=== PATIENT | male | born 1940 | race Caucasian/White ===

== ENCOUNTER → 2017-10-02 | Outpatient (CLI) | payer MEDICARE ==
[~2017-10-02] MED LIST: OMNIPAQUE 350 MG/ML, 100ML BOTTLE ONE
== END | disposition home or self-care (01) ==
LOC: CFH 09:06
PROVIDERS: ATTEND Internal Medicine Cardiovascular Disease
DX: I71.2 Thoracic aortic aneurysm, without rupture (principal); I08.3 Combined rheumatic disorders of mitral, aortic and tricuspid valves; I10 Essential (primary) hypertension; I25.10 Atherosclerotic heart disease of native coronary artery without angina pectoris
CPT/HCPCS: 71275; 82565; 93306; Q9967

== ENCOUNTER → 2018-06-27 | Outpatient (CLI) | payer MEDICARE | END | disposition home or self-care (01) | LOC: CFH 13:36 | PROVIDERS: ATTEND Physician Assistant | DX: I77.810 Thoracic aortic ectasia (principal); I35.1 Nonrheumatic aortic (valve) insufficiency; I25.10 Atherosclerotic heart disease of native coronary artery without angina pectoris; I71.2 Thoracic aortic aneurysm, without rupture; I11.9 Hypertensive heart disease without heart failure; I35.8 Other nonrheumatic aortic valve disorders; R73.03 Prediabetes; Z87.891 Personal history of nicotine dependence | CPT/HCPCS: 71275; 82565; 93306; Q9967 ==

== ENCOUNTER → 2019-01-30 | Outpatient (CLI) | payer MEDICARE | END | disposition home or self-care (01) | LOC: CFH 08:51 | PROVIDERS: ATTEND Internal Medicine Cardiovascular Disease | DX: I71.2 Thoracic aortic aneurysm, without rupture (principal); N28.1 Cyst of kidney, acquired | CPT/HCPCS: 71275; 82565; Q9967 ==

== ENCOUNTER → 2020-09-01 | Outpatient (CLI) | payer MEDICARE | END | disposition home or self-care (01) | LOC: CFH 08:25 | PROVIDERS: ATTEND Internal Medicine Cardiovascular Disease | DX: I08.0 Rheumatic disorders of both mitral and aortic valves (principal); I71.2 Thoracic aortic aneurysm, without rupture; I11.9 Hypertensive heart disease without heart failure; Z87.891 Personal history of nicotine dependence | CPT/HCPCS: 71275; 93306; Q9967 ==

== ENCOUNTER → 2021-02-25 | Outpatient (CLI) | payer MEDICARE | END | disposition home or self-care (01) | LOC: CFH 08:44 | PROVIDERS: ATTEND Internal Medicine Cardiovascular Disease | DX: I71.2 Thoracic aortic aneurysm, without rupture (principal) | CPT/HCPCS: 71275; 82565; Q9967 ==